=== PATIENT | male | born 1955 | race African-American/Black ===

== ENCOUNTER 2016-12-04 18:32 | Emergency (ER) | payer MEDICAID ==
[~2016-12-04] VITALS: Ht 175.3 cm; Wt 68.2 kg
[~2016-12-04 18:32] MED LIST: AMLO-512 PO; VERA-7 PO
[2016-12-04 20:36] VITALS: BP 121/74
[2016-12-04] MEDS ORDERED: IBUPROFEN 400 MG TABLET PO ONE (21:00)
[2016-12-04] MEDS ORDERED: TraMADol HCL 50 MG TABLET PO ONE (21:00)
== END 2016-12-04 21:12 | disposition home or self-care (01) ==
LOC: EMS 18:34
DX: H72.92 Unspecified perforation of tympanic membrane, left ear (principal); I11.9 Hypertensive heart disease without heart failure; F11.90 Opioid use, unspecified, uncomplicated; F17.210 Nicotine dependence, cigarettes, uncomplicated
CPT/HCPCS: 99283

== ENCOUNTER 2017-01-29 20:26 | Emergency (ER) | payer MEDICAID ==
[~2017-01-29] VITALS: Ht 175.3 cm; Wt 63.6 kg
[2017-01-29 20:42] LABS: GLUCOSE,POINT OF CARE 137 MG/DL (70-110)
[2017-01-29 21:01] VITALS: BP 108/70
== END 2017-01-29 21:40 | disposition home or self-care (01) ==
LOC: EMS 20:27
DX: H61.22 Impacted cerumen, left ear (principal); H92.02 Otalgia, left ear; I11.9 Hypertensive heart disease without heart failure; F17.210 Nicotine dependence, cigarettes, uncomplicated; F11.90 Opioid use, unspecified, uncomplicated
CPT/HCPCS: 82962; 99282

== ENCOUNTER 2018-05-16 14:32 | Emergency (ER) | payer MEDICAID ==
[~2018-05-16] VITALS: Ht 175.3 cm; Wt 72.7 kg
[2018-05-16] MEDS ORDERED: ALBUTEROL SULFATE HFA 90 MCG/PUFF 8 GM INHALER IH ONE (16:30)
[2018-05-16 16:52] VITALS: BP 119/56
== END 2018-05-16 16:58 | disposition home or self-care (01) ==
LOC: EMS 14:32
DX: J44.9 Chronic obstructive pulmonary disease, unspecified (principal); I11.9 Hypertensive heart disease without heart failure; F17.210 Nicotine dependence, cigarettes, uncomplicated; F11.90 Opioid use, unspecified, uncomplicated; Z85.818 Personal history of malignant neoplasm of other sites of lip, oral cavity, and pharynx; Z79.899 Other long term (current) drug therapy
CPT/HCPCS: 94640; 99406; J3535